=== PATIENT | male | born 1980 | race African-American/Black ===

== ENCOUNTER 2016-08-18 19:02 | Emergency (ER) | payer SELFPAY ==
[~2016-08-18] VITALS: Ht 180.3 cm; Wt 99.0 kg
[2016-08-18 19:05] VITALS: BP 134/79; PULSE 74; RESP 16; TEMP 98.7; O2SAT 99
--- NOTE | 2016-08-18 21:16 | PD ---
Physical Exam Time Seen by Provider: 21:13 Narrative 36 y/o male here for evaluation of bilateral knee pain, L>R, today.. Today he took a "wrong step" and feels that his L knee locked up on him. He has a known meniscal tear in L knee, previous MRI in 2008. Vital signs reviewed. Seen at triage desk. Awaiting bed placement. Data Data Last Documented VS Vital Signs Date Time Temp Pulse Resp B/P Pulse Ox O2 Delivery O2 Flow Rate FiO2 08/18/16 19:05 98.7 74 16 134/79 99 Room Air [facility] Medical Record Reviewed: Yes Supervised Visit with AMALIA: Cullen Crane Aug 18, 2016 21:16
== END 2016-08-18 21:44 | disposition left against medical advice (07) ==
LOC: NED 19:02
DX: M25.562 Pain in left knee (principal); M25.561 Pain in right knee; Z53.21 Procedure and treatment not carried out due to patient leaving prior to being seen by health care provider
CPT/HCPCS: 99281

== ENCOUNTER 2017-04-02 17:31 | Emergency (ER) | payer BC ==
[~2017-04-02] VITALS: Ht 188 cm; Wt 110.0 kg
[2017-04-02 17:33] VITALS: BP 139/82; PULSE 99; RESP 24; TEMP 102.4; O2SAT 98
[2017-04-02] MEDS ORDERED: ACETAMINOPHEN 500 MG CPLT PO ONE (18:15)
[2017-04-02] MEDS ORDERED: IBUPROFEN 600 MG TAB PO ONE (18:15)
--- NOTE | 2017-04-02 18:20 | PD ---
HPI Chief Complaint: Cold / Flu Symptoms Time Seen by Provider: 18:02 Travel History International Travel<30 days: No Contact w/Intl Traveler<30days: No Traveled to known affect area: No History of Present Illness HPI This patient complains of fever and chills. Duration one day. Severity is moderate. He does have cough bringing up some phlegm. He also has runny nose and congestion. He complains of sore throat. He has diffuse body aches. No alleviating factors. No exacerbating factors. He denies ill contacts. No diarrhea or vomiting PFSH Past Medical History ?: Not Social History Alcohol Use: No Tobacco Use: Yes Substance Use: No Allergies-Medications (Allergen,Severity, Reaction): Coded Allergies: No Known Allergies (Unverified , 04/02/17) Review of Systems General / Constitutional: Positive: Fever, Chills Eyes: No: Visual changes HENT: Positive: Sore Throat, Rhinorrhea, Congestion, No: Headaches Cardiovascular: No: Chest Pain or Discomfort Respiratory: Positive: Cough, No: Shortness of Breath Gastrointestinal: No: Abdominal Pain Genitourinary: No: Dysuria Musculoskeletal: No: Pain Skin: No Rash Neurologic: No: Weakness Psychiatric: No: Depression Endocrine: No: Polydipsia Hematologic/Lymphatic: No: Easy Bruising Physical Exam Narrative GENERAL: Well-nourished, well-developed patient in no apparent distress. SKIN: Focused skin assessment reveals no rash and nodules. Skin is Warm and dry. HEAD: Atraumatic. Normocephalic. EYES: Pupils equal and round. No scleral icterus. No injection or drainage. ENT: No nasal bleeding or discharge. Mucous membranes pink and moist. Posterior pharynx is erythematous but uvula midline and no exudate NECK: Trachea midline. No JVD. No meningeal signs CARDIOVASCULAR: Regular rate and rhythm. No murmur appreciated. RESPIRATORY: No accessory muscle use. Clear to auscultation. Breath sounds equal bilaterally. GASTROINTESTINAL: Abdomen soft, non-tender, nondistended. Hepatic and splenic margins not palpable. MUSCULOSKELETAL: No obvious deformities. No clubbing. No cyanosis. No edema. NEUROLOGICAL: Awake and alert. No obvious cranial nerve deficits. Motor grossly within normal limits. Normal speech. PSYCHIATRIC: Appropriate mood and affect; insight and judgment normal. Data Data Last Documented VS Vital Signs Date Time Temp Pulse Resp B/P (MAP) Pulse Ox O2 Delivery O2 Flow Rate FiO2 04/02/17 19:20 103.1 04/02/17 17:33 99 24 98 Orders Orders Acetaminophen (Tylenol) (04/02/17 18:15) Ibuprofen (Motrin) (04/02/17 18:15) Influenzae A/B Antigen (04/02/17 18:13) Group A Rapid Strep Screen (04/02/17 18:13) Chest, Single Ap (04/02/17 ) Urinalysis - C+S If Indicated (04/02/17 18:13) Strep Culture (Group A) (04/02/17 18:25) Blood Culture (04/02/17 19:26) Complete Blood Count With Diff (04/02/17 19:26) Basic Metabolic Panel (Bmp) (04/02/17 19:26) Iv Access Insert/Monitor (04/02/17 19:26) Ceftriaxone Inj (Rocephin Inj) (04/02/17 19:30) Labs Laboratory Tests Test 04/02/17 18:25 04/02/17 19:40 Urine Color YELLOW Urine Turbidity CLEAR Urine pH 7.0 Urine Specific [place] 1.014 Urine Protein NEG mg/dL Urine Glucose (UA) NEG mg/dL Urine Ketones NEG mg/dL Urine Occult Blood NEG Urine Nitrite NEG Urine Bilirubin NEG Urine Urobilinogen 2.0 MG/DL Urine Leukocyte Esterase NEG Urine RBC 1 /hpf Urine WBC LESS THAN 1 /hpf Urine Mucus FEW /lpf Microscopic Urinalysis Comment CULT NOT INDICATED White Blood Count 19.2 TH/MM3 Red Blood Count 3.91 MIL/MM3 Hemoglobin 13.0 GM/DL Hematocrit 38.3 % Mean Corpuscular Volume 97.9 FL Mean Corpuscular Hemoglobin 33.3 PG Mean Corpuscular Hemoglobin Concent 34.1 % Red Cell Distribution Width 12.2 % Platelet Count 192 TH/MM3 Mean Platelet Volume 8.0 FL Neutrophils (%) (Auto) 88.3 % Lymphocytes (%) (Auto) 5.4 % Monocytes (%) (Auto) 5.5 % Eosinophils (%) (Auto) 0.3 % Basophils (%) (Auto) 0.5 % Neutrophils # (Auto) 17.0 TH/MM3 Lymphocytes # (Auto) 1.0 TH/MM3 Monocytes # (Auto) 1.1 TH/MM3 Eosinophils # (Auto) 0.1 TH/MM3 Basophils # (Auto) 0.1 TH/MM3 CBC Comment DIFF FINAL Differential Comment Blood Urea Nitrogen 12 MG/DL Creatinine 1.33 MG/DL Random Glucose 97 MG/DL Calcium Level 8.9 MG/DL Sodium Level 141 MEQ/L Potassium Level 3.4 MEQ/L Chloride Level 107 MEQ/L Carbon Dioxide Level 27.2 MEQ/L Anion Gap 7 MEQ/L Estimat Glomerular Filtration Rate 73 ML/MIN MDM Medical Decision Making Medical Screen Exam Complete: Yes Emergency Medical Condition: Yes Medical Record Reviewed: Yes Differential Diagnosis Pneumonia, flu syndrome, strep throat, pharyngitis, bronchitis Narrative Course I have reviewed the patient's electronic medical record. I gave the patient Tylenol and Motrin for fever Strep screen is negative Influenza swab is negative Urinalysis is clean I reviewed his chest x-ray is normal His initial temperature was 102.4 and after Tylenol and Motrin on recheck it is 103.1 I obtained 2 sets of blood cultures and sent labs He has leukocytosis and normal metabolic studies other than mild renal insufficiency On third recheck his temperature is 100.1 His fever has broke and he looks improved He still has general malaise and myalgias I offered him hospitalization but he thinks he can do better at home and does not need to stay I gave him 1 g IV Rocephin We are going to recheck him in 12 hours tomorrow morning since he has no personal physician to follow up with He has no tachycardia or hypotension or meningeal signs It's possible he just has a really asked the flu syndrome given the sensitivity of the flu test is very low at 50-70% Diagnosis Primary Impression: Febrile illness, acute Additional Impressions: Myalgia Malaise Additional Instructions: Return in 12 hours for ER recheck or sooner if you worsen Use Tylenol or Motrin for temperature over 101 Med/Other Pt SpecificInfo: Other Disposition: 01 DISCHARGE HOME Condition: Stable Joe Kerr MD Apr 02, 2017 18:20
[2017-04-02 18:54] LABS: BILIRUBIN, URINE NEG (NEG); BLOOD, URINE NEG (NEG); GLUCOSE,URINE NEG (NEG); KETONE, URINE NEG (NEG); MUCUS URINE FEW /lpf (OCC); NITRITE,URINE NEG (NEG); URINE COLOR YELLOW (YELLW/STRAW); URINE LEUKOCYTE ESTERASE NEG (NEG)
--- NOTE | 2017-04-02 19:02 | RADRPT ---
EXAM DATE/TIME: 04/02/2017 18:45 [facility] COMPARISON: No previous studies available for comparison. INDICATIONS : Fever. MEDICAL HISTORY : None. SURGICAL HISTORY : None. ENCOUNTER: Initial ACUITY: 1 day PAIN SCORE: 0/10 LOCATION: Bilateral chest FINDINGS: A single view of the chest demonstrates minimal basilar atelectasis. No effusion. No pneumothorax. To rtuous aorta. CONCLUSION: 1. Mild basilar atelectasis. No effusion. No pneumothorax. Clay Baugh MD on April 02, 2017 at 19:00 Board Certified Radiologist. This report was verified electronically.
[2017-04-02 19:20] VITALS: TEMP 103.1
[2017-04-02] MEDS ORDERED: cefTRIAXone INJ 1,000 MG in SODIUM CHLORIDE 0.9% INJ 100 ML IV ONE (19:30)
[2017-04-02 20:06] LABS: BASOPHIL # 0.1 TH/MM3 (0-0.2); BASOPHIL % 0.5 % (0.0-2.0); EOSINOPHIL # 0.1 TH/MM3 (0-0.4); EOSINOPHIL % 0.3 % (0.0-4.0); HEMATOCRIT 38.3 % (39.0-51.0); LYMPH % 5.4 % (9.0-44.0); MEAN CELL VOLUME 97.9 FL (80.0-100.0); MEAN CORPUSCULAR HEMOGLOBIN 33.3 PG (27.0-34.0); MEAN CORPUSCULAR HGB CONC 34.1 % (32.0-36.0); MONO % 5.5 % (0.0-8.0); MONOCYTE # 1.1 TH/MM3 (0-0.9); NEUT % 88.3 % (16.0-70.0); PLATELET COUNT 192 TH/MM3 (150-450); RED BLOOD COUNT 3.91 MIL/MM3 (4.50-5.90); RED CELL DISTRIBUTION WIDTH 12.2 % (11.6-17.2); WHITE BLOOD COUNT 19.2 TH/MM3 (4.0-11.0)
[2017-04-02 20:26] LABS: BICARBONATE 27.2 MEQ/L (21.0-32.0); CALCIUM 8.9 MG/DL (8.5-10.1); CREATININE 1.33 MG/DL (0.60-1.30)
[2017-04-02 20:50] VITALS: TEMP 100.6
[2017-04-03] MEDS ORDERED: ACET-822 PO (08:21)
== END 2017-04-02 21:20 | disposition home or self-care (01) ==
LOC: NEPD 17:31
DX: R50.9 Fever, unspecified (principal); M79.1 Myalgia; R53.81 Other malaise; D72.829 Elevated white blood cell count, unspecified; N28.9 Disorder of kidney and ureter, unspecified; Z72.0 Tobacco use
CPT/HCPCS: 71045; 80048; 81001; 85025; 87040; 87081; 87804; 87880; 96365; 99284; J0696

== ENCOUNTER 2017-04-03 08:00 | Emergency (ER) | payer BC ==
[~2017-04-03] VITALS: Ht 188 cm; Wt 120.0 kg
[2017-04-03 08:04] VITALS: BP 145/97; PULSE 83; RESP 20; TEMP 99.2; O2SAT 98
[2017-04-03] MEDS ORDERED: ACET-822 PO (08:21)
--- NOTE | 2017-04-03 08:23 | PD ---
HPI Chief Complaint: Fever Time Seen by Provider: 08:16 Travel History International Travel<30 days: No Contact w/Intl Traveler<30days: No Traveled to known affect area: No History of Present Illness HPI 36-year-old male came to the emergency room with history of fever for past 30 hours. Patient says that the maximum temperature he had was 104 which was last night. Patient was in the emergency room last night with the symptoms. He is also complaining of body ache and sore throat. He had a complete workup done including rapid flu and rapid strep. White blood cell count was elevated but all the other blood tests and tests were negative. Patient was given IV fluid and IV Rocephin and discharged home. Patient has returned since he continues to be diaphoretic to the whole night and not feeling well. He continues with a sore throat and body aches. His mother is here with him. Patient took last dose of Tylenol at 5:30 this morning. Temperature in triage was 99.8. Rest of the vital signs were within normal limit. Patient does not know of any positive contacts. He is otherwise a healthy person. [facility] Past Medical History Narrative Medical List of his past medical, surgical, social and family history is reviewed from the nursing note. Social History Alcohol Use: No Tobacco Use: Yes Substance Use: No Allergies-Medications (Allergen,Severity, Reaction): Coded Allergies: No Known Allergies (Unverified , 04/03/17) Comments No known drug allergies. Reported Meds & Prescriptions Reported Meds & Active Scripts Active Reported Tylenol Extra Strength (Acetaminophen) 500 Mg Tablet 2 Tab PO Q4HR PRN Narrative Medication List of his home medications reviewed from the nursing note. Review of Systems Except as stated in HPI: all other systems reviewed are Neg General / Constitutional: Positive: Fever, Chills HENT: Positive: Sore Throat Musculoskeletal: Positive: Myalgias Physical Exam Narrative GENERAL: Awake, alert, moderate distress SKIN: Focused skin assessment warm/dry. HEAD: Atraumatic. Normocephalic. EYES: Pupils equal and round. No scleral icterus. No injection or drainage. ENT: No nasal bleeding or discharge. Dry mucous membrane. Exudates on the tonsils and pharynx NECK: Trachea midline. No JVD. CARDIOVASCULAR: Regular rate and rhythm. No murmur appreciated. RESPIRATORY: No accessory muscle use. Clear to auscultation. Breath sounds equal bilaterally. GASTROINTESTINAL: Abdomen soft, non-tender, nondistended. Hepatic and splenic margins not palpable. MUSCULOSKELETAL: No obvious deformities. No clubbing. No cyanosis. No edema. NEUROLOGICAL: Awake and alert. No obvious cranial nerve deficits. Motor grossly within normal limits. Normal speech. PSYCHIATRIC: Appropriate mood and affect; insight and judgment normal. Data Data Last Documented VS Vital Signs Date Time Temp Pulse Resp B/P (MAP) Pulse Ox O2 Delivery O2 Flow Rate FiO2 04/03/17 10:10 04/03/17 09:34 98.6 70 18 99 04/03/17 08:35 Room Air Orders Orders Complete Blood Count With Diff (04/03/17 08:33) Comprehensive Metabolic Panel (04/03/17 08:33) Influenzae A/B Antigen (04/03/17 08:33) Lactic Acid (04/03/17 08:33) Sodium Chlor 0.9% 1000 Ml Inj (Ns 1000 M (04/03/17 08:45) Ed Discharge Order (04/03/17 09:29) Electrocardiogram (04/03/17 ) Labs Laboratory Tests Test 04/03/17 08:38 04/03/17 08:40 White Blood Count 19.9 TH/MM3 Red Blood Count 3.96 MIL/MM3 Hemoglobin 13.5 GM/DL Hematocrit 39.5 % Mean Corpuscular Volume 99.7 FL Mean Corpuscular Hemoglobin 34.2 PG Mean Corpuscular Hemoglobin Concent 34.3 % Red Cell Distribution Width 12.5 % Platelet Count 183 TH/MM3 Mean Platelet Volume 8.2 FL Neutrophils (%) (Auto) 84.7 % Lymphocytes (%) (Auto) 7.7 % Monocytes (%) (Auto) 6.1 % Eosinophils (%) (Auto) 1.0 % Basophils (%) (Auto) 0.5 % Neutrophils # (Auto) 16.9 TH/MM3 Lymphocytes # (Auto) 1.5 TH/MM3 Monocytes # (Auto) 1.2 TH/MM3 Eosinophils # (Auto) 0.2 TH/MM3 Basophils # (Auto) 0.1 TH/MM3 CBC Comment DIFF FINAL Differential Comment Blood Urea Nitrogen 10 MG/DL Creatinine 1.30 MG/DL Random Glucose 97 MG/DL Total Protein 7.3 GM/DL Albumin 3.6 GM/DL Calcium Level 8.9 MG/DL Alkaline Phosphatase 63 U/L Aspartate Amino Transf (AST/SGOT) 21 U/L Alanine Aminotransferase (ALT/SGPT) 12 U/L Total Bilirubin 0.4 MG/DL Sodium Level 140 MEQ/L Potassium Level 3.8 MEQ/L Chloride Level 107 MEQ/L Carbon Dioxide Level 26.9 MEQ/L Anion Gap 6 MEQ/L Estimat Glomerular Filtration Rate 75 ML/MIN Lactic Acid Level 1.8 mmol/L MDM Medical Decision Making Medical Screen Exam Complete: Yes Emergency Medical Condition: Yes Medical Record Reviewed: Yes Interpretation(s) Twelve-lead EKG was reviewed by me. Normal sinus rhythm, normal axis, nonspecific ST-T wave changes. Heart rate of 61 bpm. Differential Diagnosis Sepsis, viral illness Narrative Course 9:01 AM CBC has returned and white blood cell count is similar to the one done about 12 hours ago. Awaiting for the chemistry and lactic acid to return. Patient is getting IV fluid bolus. 9:29 AM rest of the blood test result is back and remains benign. Lactic acid is within normal range. I will discharge this patient home. Procedures EKG Prior to Arrival: No Diagnosis Primary Impression: Viral illness Referrals: Primary Care Physician Additional Instructions: Return to the ER if condition worsens. Otherwise continue keeping himself hydrated and Tylenol or Motrin for fever. Follow-up with your primary care. Med/Other Pt SpecificInfo: No Change to Meds Disposition: 01 DISCHARGE HOME Condition: Stable Jm Tellez MD Apr 03, 2017 08:23
[2017-04-03 08:27] VITALS: BP 132/88; PULSE 73; RESP 18; O2SAT 97
[2017-04-03] MEDS ORDERED: SODIUM CHLOR 0.9% 1000 ML INJ 1,000 ML IV ONE (08:45)
[2017-04-03 08:52] LABS: AUTOMATED NEUTROPHIL # 16.9 TH/MM3 (1.8-7.7); BASOPHIL # 0.1 TH/MM3 (0-0.2); BASOPHIL % 0.5 % (0.0-2.0); EOSINOPHIL # 0.2 TH/MM3 (0-0.4); HEMATOCRIT 39.5 % (39.0-51.0); HEMOGLOBIN 13.5 GM/DL (13.0-17.0); LYMPH % 7.7 % (9.0-44.0); LYMPHOCYTE # 1.5 TH/MM3 (1.0-4.8); MEAN CELL VOLUME 99.7 FL (80.0-100.0); MEAN CORPUSCULAR HEMOGLOBIN 34.2 PG (27.0-34.0); MEAN CORPUSCULAR HGB CONC 34.3 % (32.0-36.0); MEAN PLATELET VOLUME 8.2 FL (7.0-11.0); MONO % 6.1 % (0.0-8.0); MONOCYTE # 1.2 TH/MM3 (0-0.9); NEUT % 84.7 % (16.0-70.0); PLATELET COUNT 183 TH/MM3 (150-450); RED BLOOD COUNT 3.96 MIL/MM3 (4.50-5.90); RED CELL DISTRIBUTION WIDTH 12.5 % (11.6-17.2); WHITE BLOOD COUNT 19.9 TH/MM3 (4.0-11.0)
[2017-04-03 09:07] LABS: ALBUMIN 3.6 GM/DL (3.4-5.0); AST (GOT) 21 U/L (15-37); BICARBONATE 26.9 MEQ/L (21.0-32.0); BLOOD UREA NITROGEN 10 MG/DL (7-18); CALCIUM 8.9 MG/DL (8.5-10.1); CHLORIDE 107 MEQ/L (98-107); GLOMERULAR FILTRATION RATE 75 ML/MIN (>89); GLUCOSE,RANDOM 97 MG/DL (74-106); SODIUM (NA) 140 MEQ/L (136-145)
[2017-04-03 09:08] LABS: ALT (GPT) 12 U/L (12-78)
[2017-04-03 09:10] LABS: ALKALINE PHOSPHATASE 63 U/L (45-117); TOTAL BILIRUBIN ADULT 0.4 MG/DL (0.2-1.0); TOTAL PROTEIN 7.3 GM/DL (6.4-8.2)
[2017-04-03 09:34] VITALS: BP 142/88; PULSE 70; RESP 18; TEMP 98.6; O2SAT 99
--- NOTE | 2017-04-04 22:58 | EKG ---
Date Performed: 04/03/2017 Time Performed: 09:38:02 PTAGE: 36 years EKG: Sinus rhythm WITH SINUS ARRHYTHMIA NORMAL ECG NO PREVIOUS TRACING DOCTOR: Ryan Gates Interpretating Date/Time 04/04/2017 22:56:04
== END 2017-04-03 10:10 | disposition home or self-care (01) ==
LOC: NEPE 08:00
DX: B34.9 Viral infection, unspecified (principal); I49.8 Other specified cardiac arrhythmias; Z72.0 Tobacco use
CPT/HCPCS: 80053; 83605; 85025; 87804; 93005; 99284; J7030